=== PATIENT | female | born 1950 | race Caucasian/White ===

== ENCOUNTER → 2021-04-14 11:37 | Outpatient (BNVA) | payer MEDICARE, OTHER, SELFPAY | PROVIDERS: Visit Provider Emergency Medicine | DX: Z20.822 Contact with and (suspected) exposure to COVID-19 (principal); D32.9 Benign neoplasm of meninges, unspecified; J32.9 Chronic sinusitis, unspecified | CPT/HCPCS: 87400; 87635 ==